=== PATIENT | male | born 1955 | race African-American/Black ===

== ENCOUNTER 2016-11-24 09:53 | Inpatient (IN) | payer MEDICAID, MEDICARE ==
[~2016-11-24] VITALS: Ht 180.3 cm; Wt 82.6 kg
[~2016-11-24 09:53] MED LIST: PHEN100C4 PO
[2016-11-24] MEDS ORDERED: LORAZEPAM 2MG/ML CPJ ONE (10:10)
[2016-11-24] MEDS ORDERED: SODIUM CHLORIDE 0.9% 1,000 ML IV ONE (10:11)
[2016-11-24 11:08] LABS: *AMPHETAMINES SCREEN URINE NEGATIVE (NEGATIVE); *BARBITURATES SCREEN URINE NEGATIVE (NEGATIVE); *BENZODIAZEPINES SCREEN URINE NEGATIVE (NEGATIVE); *COCAINE SCREEN URINE PRESUMTIVE POSITIVE (NEGATIVE); CANNABINOID URINE SCREEN NEGATIVE (NEGATIVE); ECSTASY MDMA SCREEN URINE NEGATIVE (NEGATIVE); METHADONE URINE SCREEN NEGATIVE (NEGATIVE); OPIATES URINE SCREEN PRESUMTIVE POSITIVE (NEGATIVE); PHENCYCLIDINE URINE SCREEN NEGATIVE (NEGATIVE)
[2016-11-24 11:19] LABS: BASOPHILS % 0.7 % (0.0-2.0); EOSINOPHILS % 1.3 % (0.0-5.0); HEMATOCRIT. 34.8 % (42.0-52.0); HEMOGLOBIN. 11.6 g/dL (14.0-18.0); LYMPHOCYTES % 10.1 % (20.0-50.0); MEAN CORPUSCULAR HEMOGLOBIN 31.5 pg (28.0-32.0); MEAN CORPUSCULAR HGB CONC 33.3 g/dL (31.0-37.0); MEAN CORPUSCULAR VOLUME 94.8 fL (80.0-94.0); MEAN PLATELET VOLUME 7.9 fl (7.4-10.4); MONOCYTES % 6.3 % (2.0-8.0); NEUTROPHILS % 81.6 % (40.0-76.0); PLATELET 231 x1000/uL (130-400); RED BLOOD CELL COUNT 3.67 mill/uL (4.7-6.1); RED CELL DISTRIBUTION WIDTH 12.2 % (11.6-14.6); WHITE BLOOD COUNT 6.3 x1000/uL (4.5-11.0)
[2016-11-24 11:29] LABS: PARTIAL THROMBOPLASTIN TIME 26.1 sec (24.0-34.0); PROTHROMBIN TIME 10.7 sec
[2016-11-24 11:31] LABS: ALBUMIN 3.6 g/dL (3.4-5.0); ANION GAP 18; CALCIUM 8.5 mg/dL (8.5-10.1); CARBON DIOXIDE 20 mEq/L (21-32); CHLORIDE 99 mEq/L (98-107); ETHANOL BLOOD < 10 mg/dL; INDEX HEMOLYSI 1 (1-3); INDEX ICTERIC 1 (1-4); INDEX LIPEMIC 1 (1-3); UREA NITROGEN BLOOD 7 mg/dL (7-21)
[2016-11-24 11:35] LABS: ALANINE AMINOTRANSFERASE 63 IU/L (13-61); PHENYTOIN 4.3 ug/mL (10-20); TROPONIN I < 0.02 ng/mL (0.00-0.04); eGFR > 60 mL/min (>60)
[2016-11-24 12:07] LABS: CARBAMAZEPINE < 0.5 ug/mL (4-12); PHENOBARBITAL < 2.1 ug/mL (15.0-40.0); VALPROIC ACID < 3.0 ug/mL (50-100)
[2016-11-24] MEDS ORDERED: LEVETIRACETAM 500MG PREMIX 100 ML IV ONE (12:30)
[2016-11-24] MEDS ORDERED: LORAZEPAM 2MG/ML CPJ IV ONE (12:30)
[2016-11-24 16:00] VITALS: BP 133/84
[2016-11-24 16:02] VITALS: BP 133/84
[2016-11-24 20:00] VITALS: BP 135/85
[2016-11-24] MEDS ORDERED: ENOXAPARIN 40MG/0.4ML SYR SUBCUT SCH (21:00)
[2016-11-24] MEDS: PHENYTOIN SODIUM 100MG/2ML VIAL IV SCH (21:08)
[2016-11-25] VITALS: BP 123/83
[2016-11-25 04:00] VITALS: BP 144/89
[2016-11-25] MEDS: PHENYTOIN SODIUM 100MG/2ML VIAL IV SCH ×2 (05:48→15:10)
[2016-11-25 08:00] VITALS: BP 137/87
[2016-11-25] MEDS ORDERED: FAMOTIDINE 20MG/2ML VIAL IV SCH (09:00)
[2016-11-25 12:00] VITALS: BP 115/74
[2016-11-25 17:20] VITALS: BP 125/75
== END 2016-11-25 19:03 | disposition home or self-care (01) | DRG 816 ==
LOC: ER 09:56 → 7EST 15:35
PROVIDERS: ADMIT Ophthalmology; ATTEND Ophthalmology
DX: T40.5X1A Poisoning by cocaine, accidental (unintentional), initial encounter (principal); I10 Essential (primary) hypertension; G40.909 Epilepsy, unspecified, not intractable, without status epilepticus; Z79.899 Other long term (current) drug therapy; Y92.89 Other specified places as the place of occurrence of the external cause
CPT/HCPCS: 36415; 51702; 70450; 71010; 80053; 80156; 80165; 80184; 80185; 80305; 82962; 84484; 85025; 85610; 85730; 93005; 96365; 96375; 99285; G0482; J1165; J1650; J1953; J2060; J7030

== ENCOUNTER 2017-02-18 14:41 | Emergency (ER) | payer MEDICAID, MEDICARE ==
[~2017-02-18] VITALS: Ht 193 cm; Wt 82.0 kg
[2017-02-18] MEDS ORDERED: SODIUM CHLORIDE 0.9% 1,000 ML IV ONE (14:56)
[2017-02-18] MEDS ORDERED: PHENYTOIN SODIUM 1,000 MG in SODIUM CHLORIDE 0.9% 100 ML IV ONE (15:15)
[2017-02-18 15:25] LABS: BASOPHILS % 0.9 % (0.0-2.0); EOSINOPHILS % 1.5 % (0.0-5.0); HEMATOCRIT. 34.5 % (42.0-52.0); HEMOGLOBIN. 11.2 g/dL (14.0-18.0); LYMPHOCYTES % 18.8 % (20.0-50.0); MEAN CORPUSCULAR HEMOGLOBIN 30.6 pg (28.0-32.0); MEAN CORPUSCULAR HGB CONC 32.3 g/dL (31.0-37.0); MEAN CORPUSCULAR VOLUME 94.7 fL (80.0-94.0); MEAN PLATELET VOLUME 7.5 fl (7.4-10.4); MONOCYTES % 11.3 % (2.0-8.0); NEUTROPHILS % 67.5 % (40.0-76.0); PLATELET 262 x1000/uL (130-400); RED BLOOD CELL COUNT 3.65 mill/uL (4.7-6.1); RED CELL DISTRIBUTION WIDTH 12.4 % (11.6-14.6); WHITE BLOOD COUNT 4.9 x1000/uL (4.5-11.0)
[2017-02-18 15:28] LABS: CHLORIDE 105 mEq/L (98-107); INDEX HEMOLYSI 1 (1-3); INDEX ICTERIC 1 (1-4); INDEX LIPEMIC 1 (1-3)
[2017-02-18 15:30] LABS: ANION GAP 10; CALCIUM 9.1 mg/dL (8.5-10.1); CARBON DIOXIDE 27 mEq/L (21-32)
[2017-02-18 15:36] LABS: ALANINE AMINOTRANSFERASE 34 IU/L (13-61); ALBUMIN 3.8 g/dL (3.4-5.0); ETHANOL BLOOD < 10 mg/dL; PHENYTOIN 1.3 ug/mL (10-20); UREA NITROGEN BLOOD 8 mg/dL (7-21); eGFR > 60 mL/min (>60)
[2017-02-18 15:42] LABS: CARBAMAZEPINE < 0.5 ug/mL (4-12); PHENOBARBITAL < 2.1 ug/mL (15.0-40.0); VALPROIC ACID 3.5 ug/mL (50-100)
[2017-02-18 18:22] VITALS: BP 159/90
== END 2017-02-18 19:19 | disposition home or self-care (01) ==
LOC: ER 14:53
DX: G40.909 Epilepsy, unspecified, not intractable, without status epilepticus (principal); I10 Essential (primary) hypertension; F14.10 Cocaine abuse, uncomplicated; F11.10 Opioid abuse, uncomplicated; Z91.14 Patient's other noncompliance with medication regimen
CPT/HCPCS: 36415; 70450; 71010; 73130; 80053; 80156; 80165; 80184; 80185; 85025; 93005; 96365; 99285; G0482; J1165; J7030; Z7610; J7050

== ENCOUNTER 2017-04-01 07:22 | Observation (INO) | payer MEDICARE ==
[~2017-04-01] VITALS: Ht 193 cm; Wt 79.4 kg
[2017-04-01] MEDS ORDERED: ONDANSETRON HCL 4MG/2ML VIAL IV STA (07:32)
[2017-04-01] MEDS ORDERED: SODIUM CHLORIDE 0.9% 1,000 ML IV ONE (07:32)
[2017-04-01] MEDS ORDERED: LORAZEPAM 2MG/ML CPJ IV ONE (07:45)
[2017-04-01 07:53] LABS: BASOPHILS % 1.1 % (0.0-2.0); HEMATOCRIT. 33.6 % (42.0-52.0); HEMOGLOBIN. 11.1 g/dL (14.0-18.0); LYMPHOCYTES % 14.5 % (20.0-50.0); MEAN CORPUSCULAR HEMOGLOBIN 31.5 pg (28.0-32.0); MEAN CORPUSCULAR VOLUME 94.9 fL (80.0-94.0); MEAN PLATELET VOLUME 8.2 fl (7.4-10.4); MONOCYTES % 6.6 % (2.0-8.0); NEUTROPHILS % 75.8 % (40.0-76.0); PLATELET 220 x1000/uL (130-400); RED BLOOD CELL COUNT 3.54 mill/uL (4.7-6.1); RED CELL DISTRIBUTION WIDTH 12.6 % (11.6-14.6)
[2017-04-01 07:59] LABS: CHLORIDE 106 mEq/L (98-107)
[2017-04-01 08:01] LABS: PARTIAL THROMBOPLASTIN TIME 27.3 sec (24.0-34.0); PROTHROMBIN TIME 10.8 sec
[2017-04-01 08:15] LABS: CARBON DIOXIDE 20 mEq/L (21-32); CREATINE KINASE 162 IU/L (39-308); ETHANOL BLOOD < 10 mg/dL; PHENYTOIN 2.6 ug/mL (10-20)
[2017-04-01] MEDS ORDERED: PHENYTOIN SODIUM 1,000 MG in SODIUM CHLORIDE 0.9% 100 ML IV ONE (08:15)
[2017-04-01 08:49] LABS: *AMPHETAMINES SCREEN URINE NEGATIVE (NEGATIVE); *BARBITURATES SCREEN URINE NEGATIVE (NEGATIVE); *BENZODIAZEPINES SCREEN URINE NEGATIVE (NEGATIVE); *COCAINE SCREEN URINE PRESUMTIVE POSITIVE (NEGATIVE); CANNABINOID URINE SCREEN NEGATIVE (NEGATIVE); METHADONE URINE SCREEN NEGATIVE (NEGATIVE); OPIATES URINE SCREEN NEGATIVE (NEGATIVE); PHENCYCLIDINE URINE SCREEN NEGATIVE (NEGATIVE)
[2017-04-01 11:50] VITALS: BP 139/83
[2017-04-01 12:05] VITALS: BP 139/83
[2017-04-01] MEDS ORDERED: IPRATROPIUM/ALBUTEROL 0.5-3(2.5)MG/3ML NEB INH PRN (12:45)
[2017-04-01] MEDS ORDERED: HYDROCODONE/ACETAMINOPHEN 5/325MG TABLET PO PRN (12:45)
[2017-04-01] MEDS ORDERED: CLONIDINE 0.1MG TABLET PO PRN (12:45)
[2017-04-01] MEDS ORDERED: ACETAMINOPHEN 325MG TABLET PO PRN (12:45)
[2017-04-01] MEDS: ENOXAPARIN 40MG/0.4ML SYR SUBCUT SCH (13:36)
[2017-04-01] MEDS: PHENYTOIN SODIUM EXTENDED 100MG CAPSULE PO SCH ×2 (13:36→21:28)
[2017-04-01] MEDS ORDERED: MVI, ADULT NO.1 10 ML, FOLIC ACID 1 MG, THIAMINE HCL 100 MG in SODIUM CHLORIDE 0.9% 1,0... IV NR ×4 (14:00)
[2017-04-01 16:00] VITALS: BP 135/77
[2017-04-01 16:51] LABS: CREATINE KINASE 382 IU/L (39-308); TROPONIN I < 0.02 ng/mL (0.00-0.04)
[2017-04-01 20:00] VITALS: BP 124/75
[2017-04-01 23:33] LABS: CREATINE KINASE 373 IU/L (39-308); TROPONIN I < 0.02 ng/mL (0.00-0.04)
[2017-04-02] VITALS: BP 126/69
[2017-04-02 04:00] VITALS: BP 128/77
[2017-04-02] MEDS: PHENYTOIN SODIUM EXTENDED 100MG CAPSULE PO SCH ×2 (06:15→17:00)
[2017-04-02 08:00] VITALS: BP 128/78
[2017-04-02 08:09] LABS: BASOPHILS % 0.9 % (0.0-2.0); EOSINOPHILS % 1.7 % (0.0-5.0); HEMATOCRIT. 33.1 % (42.0-52.0); LYMPHOCYTES % 33.4 % (20.0-50.0); MEAN CORPUSCULAR HEMOGLOBIN 31.3 pg (28.0-32.0); MEAN CORPUSCULAR VOLUME 94.1 fL (80.0-94.0); MEAN PLATELET VOLUME 8.5 fl (7.4-10.4); MONOCYTES % 13.3 % (2.0-8.0); NEUTROPHILS % 50.7 % (40.0-76.0); PLATELET 192 x1000/uL (130-400); RED BLOOD CELL COUNT 3.52 mill/uL (4.7-6.1); RED CELL DISTRIBUTION WIDTH 12.9 % (11.6-14.6)
[2017-04-02 08:17] LABS: CARBON DIOXIDE 25 mEq/L (21-32); CHLORIDE 104 mEq/L (98-107); HDL CHOLESTEROL 57 mg/dL (40-59); LDL CHOLESTEROL 87 mg/dL (5-100); T4 FREE 0.87 ng/dL (0.76-1.46)
[2017-04-02] MEDS: ENOXAPARIN 40MG/0.4ML SYR SUBCUT SCH (08:40)
[2017-04-02 12:00] VITALS: BP 122/72
== END 2017-04-02 17:15 | disposition home or self-care (01) ==
LOC: ER 07:40 → INTOOBSV 08:30 → 7WST 08:30 → EDBEDREQ 08:42 → CANRESERV 09:52 → ENRESERV 09:52
PROVIDERS: ADMIT Internal Medicine; ATTEND Internal Medicine
DX: G40.401 Other generalized epilepsy and epileptic syndromes, not intractable, with status epilepticus (principal); I10 Essential (primary) hypertension; F14.90 Cocaine use, unspecified, uncomplicated; D64.9 Anemia, unspecified; Z91.19 Patient's noncompliance with other medical treatment and regimen; R32 Unspecified urinary incontinence
CPT/HCPCS: 36415; 70450; 80053; 80061; 80185; 80305; 82550; 83690; 84439; 84443; 84484; 85025; 85610; 85730; 96365; 96366; 96367; 96372; 96375; 97162; 99285; G0378; G0482; J1165; J1650; J2060; J2405; J3411; J3490; J7030; J7050

== ENCOUNTER 2017-05-22 11:32 | Observation (INO) | payer MEDICAID, MEDICARE ==
[~2017-05-22] VITALS: Ht 180.3 cm; Wt 77.7 kg
[2017-05-22] MEDS ORDERED: LORAZEPAM 2MG/ML CPJ ONE (11:41)
[2017-05-22] MEDS ORDERED: SODIUM CHLORIDE 0.9% 1,000 ML IV ONE (11:59)
[2017-05-22] MEDS ORDERED: LEVETIRACETAM 500MG PREMIX 100 ML IV ONE (12:00)
[2017-05-22] MEDS ORDERED: LORAZEPAM 2MG/ML CPJ IV ONE (12:00)
[2017-05-22 12:15] LABS: BG BASE EXCESS -6.3 mmol/L (-2.0-2.0); BG CARBOXYHEMOGLOBIN 0.6 % (0.5-1.5); BG DEOXYHEMOGLOBIN 1.2 % (0.0-5.0); BG HCO3 ACT 17.3 mmol/L (22.0-26.0); BG METHEMOGLOBIN 0.4 % (0.0-1.5); BG OXYGEN SATURATION 98.8 % (92.0-98.5); BG OXYHEMOGLOBIN 97.8 % (94.0-97.0); BG PH 7.394 (7.350-7.450); BG PO2 155.9 mmHg (75.0-100.0); BG SAMPLE SITE RIGHT BRACHIAL; BG TOTAL HEMOGLOBIN 12.3 g/dL (12.0-18.0); BG VENT MODE MASK - NRB
[2017-05-22 12:22] LABS: BASOPHILS % 0.6 % (0.0-2.0); EOSINOPHILS % 0.7 % (0.0-5.0); HEMATOCRIT. 42.3 % (42.0-52.0); LYMPHOCYTES % 21.1 % (20.0-50.0); MEAN CORPUSCULAR HEMOGLOBIN 29.7 pg (28.0-32.0); MEAN CORPUSCULAR VOLUME 89.7 fL (80.0-94.0); MONOCYTES % 14.3 % (2.0-8.0); NEUTROPHILS % 63.3 % (40.0-76.0); PLATELET 182 x1000/uL (130-400); RED BLOOD CELL COUNT 4.72 mill/uL (4.7-6.1); RED CELL DISTRIBUTION WIDTH 14.9 % (11.6-14.6)
[2017-05-22 12:34] LABS: AMMONIA < 10 uMol/L (<32)
[2017-05-22 12:36] LABS: INR 1.1; PROTHROMBIN TIME 11.5 sec
[2017-05-22 12:39] LABS: CARBON DIOXIDE 31 mEq/L (21-32); CHLORIDE 102 mEq/L (98-107); CREATINE KINASE 487 IU/L (39-308); ETHANOL BLOOD < 10 mg/dL; TROPONIN I 0.15 ng/mL (0.00-0.04)
[2017-05-22 12:45] LABS: CARBAMAZEPINE < 0.5 ug/mL (4-12); PHENOBARBITAL < 2.1 ug/mL (15.0-40.0); PHENYTOIN 0.4 ug/mL (10-20); VALPROIC ACID < 3.0 ug/mL (50-100)
[2017-05-22] MEDS ORDERED: PIPERACILLIN/TAZ 3.375G PREMIX 50 ML IV ONE (15:45)
[2017-05-22] MEDS ORDERED: VANCOMYCIN 1 G PREMIX 200 ML IV ONE (15:45)
[2017-05-22] MEDS ORDERED: ASPIRIN 300MG SUPP PR ONE (15:45)
[2017-05-22 17:06] LABS: CLARITY URINE CLEAR (CLEAR); COLOR URINE YELLOW (YELLOW); GLUCOSE URINE NEGATIVE (NEGATIVE); KETONES URINE NEGATIVE (NEGATIVE); LEUKOCYTE ESTERASE URINE NEGATIVE (NEGATIVE); NITRITE URINE NEGATIVE (NEGATIVE); OCCULT BLOOD URINE 1+ (NEGATIVE); PROTEIN URINE TRACE (NEGATIVE); SPECIFIC GRAVITY URINE 1.013 (1.005-1.030); UROBILINOGEN URINE 0.2 E.U./dL (0.2-1.0)
[2017-05-22 17:21] LABS: *AMPHETAMINES SCREEN URINE NEGATIVE (NEGATIVE); *BARBITURATES SCREEN URINE NEGATIVE (NEGATIVE); *BENZODIAZEPINES SCREEN URINE NEGATIVE (NEGATIVE); *COCAINE SCREEN URINE PRESUMTIVE POSITIVE (NEGATIVE); CANNABINOID URINE SCREEN NEGATIVE (NEGATIVE); METHADONE URINE SCREEN NEGATIVE (NEGATIVE); OPIATES URINE SCREEN NEGATIVE (NEGATIVE); PHENCYCLIDINE URINE SCREEN NEGATIVE (NEGATIVE)
[2017-05-22] MEDS ORDERED: ACETAMINOPHEN 325MG TABLET PO PRN (18:30)
[2017-05-22] MEDS ORDERED: ONDANSETRON HCL 4MG/2ML VIAL IV PRN (18:30)
[2017-05-22] MEDS ORDERED: IPRATROPIUM/ALBUTEROL 0.5-3(2.5)MG/3ML NEB INH PRN (18:30)
[2017-05-22] MEDS ORDERED: CLONIDINE 0.1MG TABLET PO PRN (18:30)
[2017-05-22] MEDS ORDERED: HYDROCODONE/ACETAMINOPHEN 5/325MG TABLET PO PRN (18:30)
[2017-05-22 21:36] VITALS: BP 135/75
[2017-05-22 21:39] VITALS: BP 135/75
[2017-05-22] MEDS: PHENYTOIN SODIUM EXTENDED 100MG CAPSULE PO SCH (22:53)
[2017-05-22] MEDS ORDERED: LEVOFLOXACIN 500MG PREMIX 100 ML IV SCH (23:00)
[2017-05-22] MEDS: DEXT 5%/0.45% NACL 1000ML 1,000 ML IV SCH (23:29)
[2017-05-23] VITALS (8 sets, daily range): BP systolic 115–135; BP diastolic 67–75
[2017-05-23] MEDS: PHENYTOIN SODIUM EXTENDED 100MG CAPSULE PO SCH ×3 (06:04→20:56)
[2017-05-23 06:55] LABS: BASOPHILS % 0.8 % (0.0-2.0); EOSINOPHILS % 0.5 % (0.0-5.0); HEMATOCRIT. 34.9 % (42.0-52.0); HEMOGLOBIN. 11.6 g/dL (14.0-18.0); LYMPHOCYTES % 23.6 % (20.0-50.0); MEAN CORPUSCULAR HEMOGLOBIN 31.2 pg (28.0-32.0); MEAN CORPUSCULAR VOLUME 93.7 fL (80.0-94.0); MEAN PLATELET VOLUME 9.1 fl (7.4-10.4); MONOCYTES % 12.9 % (2.0-8.0); NEUTROPHILS % 62.2 % (40.0-76.0); PLATELET 194 x1000/uL (130-400); RED BLOOD CELL COUNT 3.73 mill/uL (4.7-6.1); RED CELL DISTRIBUTION WIDTH 11.9 % (11.6-14.6)
[2017-05-23 07:19] LABS: T4 FREE 0.9 ng/dL (0.76-1.46); TROPONIN I 0.07 ng/mL (0.00-0.04)
[2017-05-23] MEDS ORDERED: ENOXAPARIN 40MG/0.4ML SYR SUBCUT SCH (09:00)
[2017-05-23] MEDS: LEVETIRACETAM 500MG TABLET PO SCH ×2 (13:34→20:56)
[2017-05-23] MEDS: DEXT 5%/0.45% NACL 1000ML 1,000 ML IV SCH (13:34)
[2017-05-23] MEDS ORDERED: PHENYTOIN SODIUM EXTENDED 100MG CAPSULE PO SCH (14:00)
[2017-05-23] MEDS ORDERED: LEVOFLOXACIN 500MG PREMIX 100 ML IV SCH (21:00)
== END 2017-05-24 01:35 | disposition short-term general hospital (02) ==
LOC: ER 11:45 → 8WST 17:41 → INTOOBSV 17:41 → EDBEDREQ 17:54 → EDBEDREQTM 17:54 → ENRESERV 18:26
PROVIDERS: ADMIT Internal Medicine; ATTEND Internal Medicine
DX: R56.9 Unspecified convulsions (principal); R74.8 Abnormal levels of other serum enzymes; R79.89 Other specified abnormal findings of blood chemistry; G93.40 Encephalopathy, unspecified; I10 Essential (primary) hypertension
CPT/HCPCS: 36415; 36600; 70450; 71010; 80053; 80061; 80156; 80165; 80184; 80185; 80305; 81001; 82140; 82375; 82550; 82805; 83605; 83880; 84439; 84443; 84484; 85025; 85610; 87040; 87086; 93005; 93308; 96361; 96365; 96366; 96368; 96375; 99285; C1893; G0378; G0482; J1953; J1956; J2060; J2543; J3370; J7030; 96367; J1650; A4315

== ENCOUNTER 2017-07-27 06:15 | Inpatient (IN) | payer MEDICARE ==
[~2017-07-27] VITALS: Ht 193 cm; Wt 83.5 kg
[2017-07-27] MEDS ORDERED: SODIUM CHLORIDE 0.9% 1,000 ML IV ONE (06:37)
[2017-07-27] MEDS ORDERED: LORAZEPAM 2MG/ML CPJ IV ONE (06:45)
[2017-07-27 07:12] LABS: EOSINOPHILS % 3.3 % (0.0-5.0); HEMATOCRIT. 35.1 % (42.0-52.0); HEMOGLOBIN. 11.6 g/dL (14.0-18.0); LYMPHOCYTES % 20.5 % (20.0-50.0); MEAN CORPUSCULAR HEMOGLOBIN 31.1 pg (28.0-32.0); MEAN CORPUSCULAR VOLUME 94.1 fL (80.0-94.0); MEAN PLATELET VOLUME 8.1 fl (7.4-10.4); MONOCYTES % 7.2 % (2.0-8.0); PLATELET 194 x1000/uL (130-400); RED BLOOD CELL COUNT 3.73 mill/uL (4.7-6.1); RED CELL DISTRIBUTION WIDTH 12.8 % (11.6-14.6)
[2017-07-27 07:18] LABS: INR 1.1; PARTIAL THROMBOPLASTIN TIME 26.4 sec (23.4-31.0); PROTHROMBIN TIME 11.2 sec (9.4-11.6)
[2017-07-27 07:24] LABS: CARBON DIOXIDE 24 mEq/L (21-32); CHLORIDE 109 mEq/L (98-107); ETHANOL BLOOD < 10 mg/dL
[2017-07-27] MEDS ORDERED: PHENYTOIN SODIUM 1,000 MG in SODIUM CHLORIDE 0.9% 100 ML IV ONE (07:30)
[2017-07-27 08:06] LABS: *AMPHETAMINES SCREEN URINE NEGATIVE (NEGATIVE); *BARBITURATES SCREEN URINE NEGATIVE (NEGATIVE); *BENZODIAZEPINES SCREEN URINE NEGATIVE (NEGATIVE); *COCAINE SCREEN URINE PRESUMTIVE POSITIVE (NEGATIVE); CANNABINOID URINE SCREEN NEGATIVE (NEGATIVE); METHADONE URINE SCREEN NEGATIVE (NEGATIVE); OPIATES URINE SCREEN NEGATIVE (NEGATIVE); PHENCYCLIDINE URINE SCREEN NEGATIVE (NEGATIVE)
[2017-07-27] MEDS ORDERED: ACETAMINOPHEN 325MG TABLET PO PRN (08:15)
[2017-07-27] MEDS ORDERED: LORAZEPAM 2MG/ML CPJ IV PRN (08:15)
[2017-07-27] MEDS ORDERED: LEVETIRACETAM 500MG PREMIX 100 ML IV NR (20:15)
[2017-07-27] MEDS ORDERED: ENOXAPARIN 40MG/0.4ML SYR SUBCUT SCH (21:00)
[2017-07-27 21:30] VITALS: BP 149/70
[2017-07-27] MEDS: FAMOTIDINE 20MG/2ML VIAL IV SCH (21:57)
[2017-07-27] MEDS ORDERED: DEXT 5%/0.45% NACL KCL 20MEQ/L 1,000 ML IV ONE (23:00)
[2017-07-28] VITALS (7 sets, daily range): BP systolic 113–140; BP diastolic 61–80
[2017-07-28] MEDS ORDERED: LEVETIRACETAM 500 MG in SODIUM CHLORIDE 0.9% 100 ML IV SCH (09:00)
[2017-07-28] MEDS: FAMOTIDINE 20MG/2ML VIAL IV SCH (10:45)
== END 2017-07-28 21:12 | disposition home or self-care (01) | DRG 53 ==
LOC: ER 06:15 → EDBEDREQ 07:58 → EDBEDREQTM 07:58 → ENRESERV 18:41 → 6WST 21:08 → INTOOBSV 21:08 → OBSVTOIN 21:08 → 6WST 22:26
PROVIDERS: ADMIT Internal Medicine; ATTEND Internal Medicine
DX: G40.901 Epilepsy, unspecified, not intractable, with status epilepticus (principal); E83.51 Hypocalcemia; I10 Essential (primary) hypertension; F14.10 Cocaine abuse, uncomplicated; F10.10 Alcohol abuse, uncomplicated; F17.200 Nicotine dependence, unspecified, uncomplicated; Z86.73 Personal history of transient ischemic attack (TIA), and cerebral infarction without residual deficits; Z91.14 Patient's other noncompliance with medication regimen; Z91.19 Patient's noncompliance with other medical treatment and regimen; Z79.899 Other long term (current) drug therapy
CPT/HCPCS: 36415; 51702; 70450; 80048; 80185; 80305; 85025; 85610; 85730; 96361; 96365; 96375; 97162; 99291; G0378; G0482; J1165; J1650; J1953; J2060; J3490; J7030; J7040; J7050

== ENCOUNTER 2017-08-28 12:06 | Emergency (ER) | payer MEDICARE ==
[~2017-08-28] VITALS: Ht 188 cm; Wt 68.0 kg
[2017-08-28] MEDS ORDERED: SODIUM CHLORIDE 0.9% 1,000 ML IV ONE (12:46)
[2017-08-28] MEDS ORDERED: LORAZEPAM 2MG/ML CPJ IV ONE (13:00)
[2017-08-28] MEDS ORDERED: LEVETIRACETAM 500MG PREMIX 100 ML IV ONE (13:00)
[2017-08-28 13:27] LABS: BASOPHILS % 1.3 % (0.0-2.0); EOSINOPHILS % 5.9 % (0.0-5.0); HEMATOCRIT. 33.2 % (42.0-52.0); MEAN CORPUSCULAR HEMOGLOBIN 31.1 pg (28.0-32.0); MEAN CORPUSCULAR VOLUME 93.5 fL (80.0-94.0); MEAN PLATELET VOLUME 8.6 fl (7.4-10.4); MONOCYTES % 11.2 % (2.0-8.0); NEUTROPHILS % 55.6 % (40.0-76.0); PLATELET 190 x1000/uL (130-400); RED BLOOD CELL COUNT 3.55 mill/uL (4.7-6.1); RED CELL DISTRIBUTION WIDTH 12.1 % (11.6-14.6)
[2017-08-28 13:35] LABS: PROTHROMBIN TIME 10.5 sec (9.4-11.6)
[2017-08-28 13:39] LABS: AMMONIA < 25 uMol/L (<32)
[2017-08-28 13:43] LABS: CARBON DIOXIDE 26 mEq/L (21-32); CHLORIDE 96 mEq/L (98-107); ETHANOL BLOOD < 10 mg/dL; TROPONIN I < 0.02 ng/mL (0.00-0.04)
[2017-08-28 13:49] LABS: CREATINE KINASE 147 IU/L (39-308)
[2017-08-28 13:51] LABS: CARBAMAZEPINE < 0.5 ug/mL (4-12); PHENOBARBITAL < 2.1 ug/mL (15.0-40.0)
[2017-08-28] MEDS ORDERED: PHENYTOIN SODIUM 500 MG in SODIUM CHLORIDE 0.9% 50 ML IV ONE (15:30)
[2017-08-28 16:25] LABS: CLARITY URINE CLEAR (CLEAR); COLOR URINE YELLOW (YELLOW); GLUCOSE URINE NEGATIVE (NEGATIVE); KETONES URINE NEGATIVE (NEGATIVE); LEUKOCYTE ESTERASE URINE NEGATIVE (NEGATIVE); NITRITE URINE NEGATIVE (NEGATIVE); OCCULT BLOOD URINE NEGATIVE (NEGATIVE); PH URINE 5.5 (4.5-8.0); PROTEIN URINE NEGATIVE (NEGATIVE); SPECIFIC GRAVITY URINE 1.008 (1.005-1.030); UROBILINOGEN URINE 0.2 E.U./dL (0.2-1.0)
[2017-08-28 17:12] LABS: *AMPHETAMINES SCREEN URINE NEGATIVE (NEGATIVE); *BARBITURATES SCREEN URINE NEGATIVE (NEGATIVE); *BENZODIAZEPINES SCREEN URINE NEGATIVE (NEGATIVE); *COCAINE SCREEN URINE PRESUMTIVE POSITIVE (NEGATIVE); CANNABINOID URINE SCREEN PRESUMTIVE POSITIVE (NEGATIVE); METHADONE URINE SCREEN NEGATIVE (NEGATIVE); OPIATES URINE SCREEN NEGATIVE (NEGATIVE); PHENCYCLIDINE URINE SCREEN NEGATIVE (NEGATIVE)
[2017-08-29 02:13] VITALS: BP 128/76
== END 2017-08-29 02:16 | disposition home or self-care (01) ==
LOC: ER 12:26 → CANRESERV 14:39 → ENRESERV 14:39 → CANBEDREQ 16:26 → ER 08-29 02:16
DX: T40.5X1A Poisoning by cocaine, accidental (unintentional), initial encounter (principal); R56.9 Unspecified convulsions; G93.40 Encephalopathy, unspecified; E86.0 Dehydration; R79.1 Abnormal coagulation profile; I10 Essential (primary) hypertension; Y92.89 Other specified places as the place of occurrence of the external cause
CPT/HCPCS: 36415; 70450; 71010; 80053; 80156; 80165; 80184; 80185; 80305; 81003; 82140; 82550; 83880; 84443; 84484; 85025; 85610; 93005; 96365; 96367; 96375; 99285; G0482; J1165; J1953; J2060; J7030; J7050; Z7610; A4315

== ENCOUNTER 2017-09-24 05:16 | Emergency (ER) | payer MEDICARE ==
[~2017-09-24] VITALS: Ht 193 cm; Wt 90.0 kg
[2017-09-24 06:56] LABS: BASOPHILS % 1.1 % (0.0-2.0); EOSINOPHILS % 3.7 % (0.0-5.0); HEMATOCRIT. 34.6 % (42.0-52.0); HEMOGLOBIN. 11.5 g/dL (14.0-18.0); LYMPHOCYTES % 28.4 % (20.0-50.0); MEAN CORPUSCULAR HEMOGLOBIN 31.8 pg (28.0-32.0); MEAN CORPUSCULAR VOLUME 95.6 fL (80.0-94.0); MEAN PLATELET VOLUME 7.7 fl (7.4-10.4); NEUTROPHILS % 53.8 % (40.0-76.0); PLATELET 257 x1000/uL (130-400); RED BLOOD CELL COUNT 3.62 mill/uL (4.7-6.1); RED CELL DISTRIBUTION WIDTH 12.5 % (11.6-14.6)
[2017-09-24 07:35] LABS: CHLORIDE 101 mEq/L (98-107)
[2017-09-24 07:35] LABS: *AMPHETAMINES SCREEN URINE NEGATIVE (NEGATIVE); *BARBITURATES SCREEN URINE NEGATIVE (NEGATIVE); *BENZODIAZEPINES SCREEN URINE NEGATIVE (NEGATIVE); *COCAINE SCREEN URINE PRESUMTIVE POSITIVE (NEGATIVE); CANNABINOID URINE SCREEN NEGATIVE (NEGATIVE); METHADONE URINE SCREEN NEGATIVE (NEGATIVE); OPIATES URINE SCREEN NEGATIVE (NEGATIVE); PHENCYCLIDINE URINE SCREEN NEGATIVE (NEGATIVE)
[2017-09-24 07:44] LABS: CARBON DIOXIDE 27 mEq/L (21-32); ETHANOL BLOOD < 10 mg/dL
[2017-09-24 08:14] VITALS: BP 149/84
== END 2017-09-24 08:17 | disposition home or self-care (01) ==
LOC: ER 05:16
DX: R56.9 Unspecified convulsions (principal); I10 Essential (primary) hypertension
CPT/HCPCS: 36415; 80053; 80305; 85025; 99284; G0482

== ENCOUNTER 2017-12-02 14:13 | Observation (INO) | payer MEDICARE, MEDICAID ==
[~2017-12-02] VITALS: Ht 167.6 cm; Wt 69.9 kg
[2017-12-02] MEDS ORDERED: PHEN100C4 PO (14:18)
[2017-12-02] MEDS ORDERED: GABA-529 PO (14:18)
[2017-12-02] MEDS ORDERED: SODIUM CHLORIDE 0.9% 1,000 ML IV ONE (14:20)
[2017-12-02] MEDS ORDERED: LORAZEPAM 2MG/ML CPJ IV ONE (15:30)
[2017-12-02] MEDS ORDERED: LORAZEPAM 2MG/ML CPJ ONE (15:38)
[2017-12-02 16:26] LABS: HEMATOCRIT. 30.9 % (42.0-52.0); HEMOGLOBIN. 9.9 g/dL (14.0-18.0); MEAN CORPUSCULAR HEMOGLOBIN 29.8 pg (28.0-32.0); MEAN CORPUSCULAR VOLUME 93.4 fL (80.0-94.0); MEAN PLATELET VOLUME 8.6 fl (7.4-10.4); PLATELET 263 x1000/uL (130-400); RED BLOOD CELL COUNT 3.31 mill/uL (4.7-6.1); RED CELL DISTRIBUTION WIDTH 12.8 % (11.6-14.6)
[2017-12-02 16:31] LABS: INR 1.1; PROTHROMBIN TIME 11.3 sec (9.4-11.6)
[2017-12-02 16:37] LABS: CHLORIDE 110 mEq/L (98-107); ETHANOL BLOOD < 10 mg/dL
[2017-12-02 16:37] LABS: *AMPHETAMINES SCREEN URINE NEGATIVE (NEGATIVE); *BARBITURATES SCREEN URINE NEGATIVE (NEGATIVE); *BENZODIAZEPINES SCREEN URINE NEGATIVE (NEGATIVE); *COCAINE SCREEN URINE PRESUMTIVE POSITIVE (NEGATIVE); CANNABINOID URINE SCREEN PRESUMTIVE POSITIVE (NEGATIVE); METHADONE URINE SCREEN NEGATIVE (NEGATIVE); OPIATES URINE SCREEN NEGATIVE (NEGATIVE); PHENCYCLIDINE URINE SCREEN NEGATIVE (NEGATIVE)
[2017-12-02 16:53] LABS: PLATELET ESTIMATE NORMAL
[2017-12-02] MEDS ORDERED: PHENYTOIN SODIUM 1,000 MG in SODIUM CHLORIDE 0.9% 100 ML IV ONE (17:00)
[2017-12-02 21:50] VITALS: BP 129/70
[2017-12-02] MEDS ORDERED: ACETAMINOPHEN 650MG/20.3ML UDC PO PRN (22:15)
[2017-12-02] MEDS ORDERED: MORPHINE SULFATE 4 MG/ML CPJ (NOT FOR IM USE) IV PRN (22:15)
[2017-12-02] MEDS ORDERED: ENOXAPARIN 40MG/0.4ML SYR SUBCUT SCH (22:30)
[2017-12-02] MEDS ORDERED: LORAZEPAM 2MG/ML CPJ IV PRN (22:30)
[2017-12-02] MEDS ORDERED: SODIUM CHLORIDE 0.45% 1,000 ML IV SCH (22:30)
[2017-12-02 23:00] VITALS: BP 129/70
[2017-12-03] VITALS: BP 116/56
[2017-12-03] MEDS ORDERED: CALCIUM GLUCONATE 1,000 MG in DEXT 5% WATER 90 ML IV SCH ×2
[2017-12-03] MEDS: ASPIRIN 81MG TABLET PO SCH ×2 (00:14→09:18)
[2017-12-03] MEDS: PHENYTOIN SODIUM EXTENDED 100MG CAPSULE PO SCH ×3 (00:15→15:32)
[2017-12-03] MEDS: FOLIC ACID 1MG TABLET PO SCH ×2 (00:15→09:19)
[2017-12-03] MEDS: LOSARTAN POTASSIUM 50 MG TABLET PO SCH ×2 (00:15→09:18)
[2017-12-03] MEDS: PANTOPRAZOLE 40MG DR TABLET PO SCH ×2 (00:15→05:43)
[2017-12-03] MEDS: LEVETIRACETAM 500MG TABLET PO SCH ×2 (00:15→09:18)
[2017-12-03 04:00] VITALS: BP 113/59
[2017-12-03 06:36] LABS: HEMOGLOBIN. 9.9 g/dL (14.0-18.0); MEAN CORPUSCULAR HEMOGLOBIN 30.3 pg (28.0-32.0); MEAN CORPUSCULAR VOLUME 92.2 fL (80.0-94.0); MEAN PLATELET VOLUME 8.7 fl (7.4-10.4); PLATELET 274 x1000/uL (130-400); RED BLOOD CELL COUNT 3.25 mill/uL (4.7-6.1); RED CELL DISTRIBUTION WIDTH 12.7 % (11.6-14.6)
[2017-12-03 07:27] LABS: CHLORIDE 105 mEq/L (98-107)
[2017-12-03 07:36] LABS: TROPONIN I < 0.02 ng/mL (0.00-0.04)
[2017-12-03 08:00] VITALS: BP 106/53
[2017-12-03 12:00] VITALS: BP 100/55
[2017-12-03 14:40] LABS: PLATELET ESTIMATE NORMAL
[2017-12-03 16:00] VITALS: BP 118/53
[2017-12-03 16:38] VITALS: BP 118/53
[2017-12-03] MEDS ORDERED: FAMOTIDINE 20MG TABLET PO SCH (21:00)
== END 2017-12-03 17:50 | disposition home or self-care (01) ==
LOC: ER 14:13 → 5WST 16:51 → INTOOBSV 16:51 → EDBEDREQ 16:55 → EDBEDREQTM 16:55 → ENRESERV 20:41
PROVIDERS: ADMIT Internal Medicine; ATTEND Internal Medicine
DX: R56.9 Unspecified convulsions (principal); F12.10 Cannabis abuse, uncomplicated; F14.10 Cocaine abuse, uncomplicated; I10 Essential (primary) hypertension; Z91.14 Patient's other noncompliance with medication regimen
CPT/HCPCS: 36415; 70450; 80048; 80053; 80185; 80305; 84484; 85025; 85610; 85730; 96361; 96365; 96367; 96375; 99291; G0378; G0482; J0610; J1165; J2060; J2270; J7030; J1650; J7050; J7060